=== PATIENT | female | born 1985 | race Hispanic/Latino ===

== ENCOUNTER 2017-09-01 19:59 | Emergency (ER) | payer MEDICAID ==
[2017-09-01 21:08] LABS: APPEARANCE,URINE Clear (CLEAR); BILIRUBIN,URINE Negative (NEGATIVE); COLOR,URINE Yellow (YELLOW); GLUCOSE, URINE (UA) Negative (NEGATIVE); KETONES,URINE Trace mg/dL (NEGATIVE); LEUKOCYTE ESTERASE ,URINE Small (NEGATIVE); NITRATE,URINE Negative (NEGATIVE); OCCULT BLOOD,URINE Small (NEGATIVE); PH,URINE 6.5 (5.0-8.0); PROTEIN,URINE Negative (NEGATIVE)
[2017-09-01 21:13] LABS: BASOPHILS % (AUTO) 0.2 % (0.0-5.0); EOSINOPHILS % (AUTO) 0.9 % (0.0-8.0); LYMPHOCYTES % (AUTO) 12.3 % (21.0-51.0); MEAN CORPUSCULAR HEMOGLOBIN 31.3 pg (27.0-33.0); MEAN CORPUSCULAR HGB CONC 34.6 g/dL (32.0-36.0); MEAN CORPUSCULAR VOLUME 90.4 fL (79-99); MONOCYTES % (AUTO) 4.7 % (3.0-13.0); NEUTROPHILS % (AUTO) 81.9 % (40.0-77.0); PLATELET COUNT (AUTO) 268 K/uL (130-400); RED BLOOD CELL COUNT(AUTO) 4.09 MIL/uL (4.00-5.50); RED CELL DISTRIBUTION WIDTH 13.2 % (11.0-15.5); WHITE BLOOD COUNT (AUTO) 13.7 K/uL (4.8-10.8)
[2017-09-01 21:15] LABS: AMPHET/METH SCREEN,URINE NEGATIVE (NEGATIVE); BARBITURATE SCREEN, URINE NEGATIVE (NEGATIVE); BENZODIAZEPINES SCREEN,URINE NEGATIVE (NEGATIVE); CANNABINOID SCREEN,URINE NEGATIVE (NEGATIVE); COCAINE SCREEN,URINE NEGATIVE (NEGATIVE); OPIATE SCREEN,URINE NEGATIVE (NEGATIVE); PHENCYCLIDINE SCREEN,URINE NEGATIVE (NEGATIVE)
[2017-09-01 21:17] LABS: BACTERIA,URINE Few /HPF (None Seen); MUCUS,URINE Few LPF (None Seen); SQUAMOUS EPITHELIAL CELL,UR Few /HPF (0-2)
[2017-09-01 21:22] LABS: CREATININE 0.6 mg/dL (0.5-1.5); POTASSIUM 3.4 mmol/L (3.5-5.1)
[2017-09-01 21:35] LABS: CREATINE KINASE MB < 0.5 ng/mL (0.5-3.6); CREATINE KINASE, TOTAL 25 U/L (21-232); MYOGLOBIN 13 ng/mL (10-92); TROPONIN I < 0.04 ng/mL (0.00-0.06)
[2017-09-01] MEDS ORDERED: SODIUM CHLORIDE 0.9% 1000ML 1,000 ML IV ONE (21:43)
[2017-09-01] MEDS ORDERED: ASPIRIN 325 MG TABLET ONE (22:42)
== END 2017-09-02 00:54 | disposition home or self-care (01) ==
LOC: EDH 19:59
DX: O26.892 Other specified pregnancy related conditions, second trimester (principal); E86.9 Volume depletion, unspecified; R06.00 Dyspnea, unspecified; R00.2 Palpitations; Z3A.15 15 weeks gestation of pregnancy
CPT/HCPCS: 36415; 76805; 80048; 80305; 81001; 82550; 82553; 83874; 84484 ×2; 85025; 93005 ×2; 96360; 96361; 99291; J7030

== ENCOUNTER 2017-11-09 20:27 | Emergency (ER) | payer MEDICAID | END 2017-11-09 20:52 | disposition home or self-care (01) | LOC: EDH 20:27 | DX: O23.592 Infection of other part of genital tract in pregnancy, second trimester (principal); Z3A.25 25 weeks gestation of pregnancy ==

== ENCOUNTER 2019-03-30 10:00 | Inpatient (IN) | payer MEDICAID ==
[~2019-03-30] VITALS: Ht 154.9 cm; Wt 59.4 kg
[2019-04-03 14:15] LABS: HEMATOCRIT 31.8 % (36-48); MEAN CORPUSCULAR HGB CONC 32.4 g/dL (32.0-36.0); MEAN CORPUSCULAR VOLUME 80.5 fL (79-99); PLATELET COUNT (AUTO) 263 K/uL (130-400); RED BLOOD CELL COUNT(AUTO) 3.95 MIL/uL (4.00-5.50); RED CELL DISTRIBUTION WIDTH 17.8 % (11.0-15.5); WHITE BLOOD COUNT (AUTO) 8.4 K/uL (4.8-10.8)
[2019-04-04] MEDS ORDERED: CEFAZOLIN SODIUM 1 GM VIAL IVP PRN (06:00)
[2019-04-04] MEDS ORDERED: LACTATED RINGERS 1000ML 1,000 ML IV SCH (06:00)
[2019-04-04] MEDS ORDERED: LACTATED RINGERS 1000ML 1,000 ML IV PRN (06:00)
[2019-04-04 06:45] VITALS: BP 111/58
[2019-04-04] MEDS ORDERED: DEXAMETHASONE SOD PHOSPHATE 10MG/ML 1ML VIAL ONE (07:33)
[2019-04-04] MEDS ORDERED: EPHEDRINE SULFATE 50 MG/ML AMPULE ONE (07:34)
[2019-04-04] MEDS ORDERED: OXYTOCIN 10 USP UNITS/ML ONE (07:34)
[2019-04-04] MEDS ORDERED: DURAMORPH PF1 MG/ML 10ML AMP IV ONE (07:34)
[2019-04-04] MEDS ORDERED: ONDANSETRON HCL 4 MG/2 ML VIAL ONE (07:35)
[2019-04-04] MEDS ORDERED: CEFAZOLIN SODIUM 1 GM VIAL IVP ONE (08:10)
[2019-04-04] MEDS ORDERED: PHENYLEPHRINE HCL 10 MG/ML 1ML VIAL IV ONE (08:20)
[2019-04-04] MEDS ORDERED: OXYTOCIN-LR 20 UNITS/1000 ML 1,000 ML IV PRN (09:00)
[2019-04-04] MEDS ORDERED: MEPERIDINE-PF 75 MG/ML SYG IM PRN (09:00)
[2019-04-04] MEDS ORDERED: SODIUM CHLORIDE 0.9% 10 ML VIAL IVP PRN (09:00)
[2019-04-04] MEDS ORDERED: CITRIC ACID/SODIUM CITRATE 30 ML UDCUP ONE (09:05)
[2019-04-04] MEDS ORDERED: CITRIC ACID/SODIUM CITRATE 30 ML UDCUP PO SCH (09:15)
[2019-04-04 09:20] LABS: RAPID PLASMA REAGIN NONREACTIVE (NONREACTIVE)
[2019-04-04] MEDS: ONDANSETRON HCL 4 MG/2 ML VIAL IVP PRN ×2 (12:13→14:18)
[2019-04-04] MEDS ORDERED: NALOXONE HCL 0.4 MG/1 ML ML IVP PRN ×3 (12:15)
[2019-04-04] MEDS ORDERED: DiphenhydrAMINE HCL 50 MG/ML VIAL IVP PRN (12:15)
--- NOTE | 2019-04-04 12:20 | NUR ---
FUNDUS IS FIRM, BLEEDING IS SCANT. NO PAIN REPORTED FROM PATIENT AT THIS TIME. PT ORIENTED TO ROOM. SCDS TO BILATERAL LOWER EXTREMITIES. CALL LIGHT LEFT IN REACH Addendum: 04/04/19 at 1900 by DMITRI HENRY LVN LVN OOZING NOTED TO RIGHT LOWER PART OF DRESSING AND MARKED
[2019-04-04 12:21] VITALS: BP 109/54
[2019-04-04 15:50] VITALS: BP 106/63
--- NOTE | 2019-04-04 15:50 | NUR ---
PATIENT REPORTS NO PAIN AT THIS TIME. FUNDUS IS FIRM, BLEEDING IS SCANT. GRAJEDA CATHETER PATENT AND DRAINING CLEAR YELLOW URINE. CALL LIGHT LEFT IN REACH.
--- NOTE | 2019-04-04 16:30 | NUR ---
ASSISTED PATIENT IN PERICARE. NO OOZING NOTED OUTSIDE OF PREVIOUSLY MARKED AREA.
[2019-04-04] MEDS ORDERED: MEPERIDINE-PF 50 MG/ML SYG ONE ×2 (18:15→23:22)
[2019-04-04] MEDS ORDERED: MEPERIDINE-PF 25 MG/ML SYG ONE ×2 (18:15→23:22)
[2019-04-04] MEDS: PROMETHAZINE HCL 25 MG/ML 1ML AMPULE IM PRN ×2 (18:21→23:28)
[2019-04-04 19:40] VITALS: BP 105/50
[2019-04-04] MEDS: DEXTROSE 5 %-0.45 % NACL 1,000 ML IV PRN (21:00)
[2019-04-04 23:28] VITALS: BP 100/59
[2019-04-05 03:30] VITALS: BP 90/50
[2019-04-05] MEDS: DEXTROSE 5 %-0.45 % NACL 1,000 ML IV PRN (03:49)
[2019-04-05 06:23] LABS: HEMATOCRIT 23.6 % (36-48); MEAN CORPUSCULAR HEMOGLOBIN 25.6 pg (27.0-33.0); MEAN CORPUSCULAR HGB CONC 31.9 g/dL (32.0-36.0); MEAN CORPUSCULAR VOLUME 80.3 fL (79-99); PLATELET COUNT (AUTO) 209 K/uL (130-400); RED BLOOD CELL COUNT(AUTO) 2.93 MIL/uL (4.00-5.50); RED CELL DISTRIBUTION WIDTH 17.8 % (11.0-15.5); WHITE BLOOD COUNT (AUTO) 11.9 K/uL (4.8-10.8)
--- NOTE | 2019-04-05 06:35 | NUR ---
Arnett catheter removed, tip intact, pericare done, scant lochia, fundus is firm. abdominal dressing removed, applied telfa dressing. applied abdominal binder. informed to call for assistance to the bathroom, pt voiced understanding. Addendum: 04/05/19 at 0701 by NIVIA SILVESTRE RN Amended: Links added.
[2019-04-05 07:40] VITALS: BP 97/52
--- NOTE | 2019-04-05 07:50 | NUR ---
FUNDUS FIRM. BLEEDING SCANT. BABY RESTING ON PATIENT'S CHEST. STERISTRIPS APPLIED TO INCISION. ABDOMINAL BINDER IN PLACE. EDUCATED PT ON IMPORTANCE OF AMBULATING AND USING I.S. INSTRUCTION GIVEN ON INCISION CARE. PT. VOICED UNDERSTANDING. CALL LIGHT LEFT IN REACH
[2019-04-05] MEDS ORDERED: BISACODYL 10 MG SUPP.RECT RC PRN (09:00)
[2019-04-05] MEDS ORDERED: LANOLIN 30GM OINTMENT TP PRN (09:00)
[2019-04-05] MEDS ORDERED: ACETAMINOPHEN EXTRA STRENGTH 500 MG TABLET PO PRN (09:00)
[2019-04-05] MEDS ORDERED: IBUPROFEN 600 MG TABLET PO PRN (09:00)
[2019-04-05] MEDS ORDERED: HYDROCODONE/ACETAMINOPHEN 5/325 MG TAB PO PRN (09:00)
[2019-04-05] MEDS: DOCUSATE SODIUM 100 MG CAP PO SCH ×2 (09:27→20:54)
[2019-04-05] MEDS: SIMETHICONE 80 MG TAB.CHEW PO PRN ×2 (09:27→20:54)
[2019-04-05] MEDS: IBUPROFEN 800 MG TAB PO SCH ×2 (09:29→16:45)
[2019-04-05 12:45] VITALS: BP 92/56
[2019-04-05] MEDS: ACETAMINOPHEN-CODEINE 300/30MG TAB PO PRN (12:53)
--- NOTE | 2019-04-05 12:53 | NUR ---
PT C/O HEADACHE. PT LAID FLAT, PAIN TO HEAD CONTINUED. COFFEE GIVEN, WILL ADMINISTER PAIN MEDICATION.
--- NOTE | 2019-04-05 13:50 | NUR ---
PT STATES PAIN IS NOW A 2/10. PT STATES SHE HAS NOT SLEPT WELL. ADVISED PT TO TRY TO REST. INFORMED QUIET TIME IS FROM 2-4 TO PROVIDE FOR UNINTERRUPTED TIME TO REST AND [place] WITH BABY. PT INSTRUCTED TO CALL WITH ANY NEEDS OR CONCERNS. PT VOICED UNDERSTANDING.
[2019-04-05 16:03] VITALS: BP 90/50
--- NOTE | 2019-04-05 16:03 | NUR ---
PT C/O DULL HEADACHE. STATES SHE HAS NOT BEEN ABLE TO REST. 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
[2019-04-05 19:30] VITALS: BP 113/53
--- NOTE | 2019-04-05 20:25 | NUR ---
PT. AMBULATED IN HALLWAY FOR 22 MINUTES, WELL TOLERATED. DENIED PAIN AND DISCOMFORT.
--- NOTE | 2019-04-05 21:05 | NUR ---
PT. UP AND SHOWERED. WELL TOLERATED.
[2019-04-06 00:09] VITALS: BP 102/57
[2019-04-06 00:15] VITALS: BP 113/63
[2019-04-06] MEDS: IBUPROFEN 800 MG TAB PO SCH ×2 (01:08→09:20)
[2019-04-06 03:37] VITALS: BP 108/53
[2019-04-06 07:55] VITALS: BP 100/63
[2019-04-06] MEDS: DOCUSATE SODIUM 100 MG CAP PO SCH (09:19)
[2019-04-06] MEDS: SIMETHICONE 80 MG TAB.CHEW PO PRN (09:20)
[2019-04-06] MEDS: ACETAMINOPHEN-CODEINE 300/30MG TAB PO PRN (11:12)
--- NOTE | 2019-04-06 12:35 | NUR ---
DISCHARGE PT LEFT UNIT VIA WHEELCHAIR, WITH BABY IN ARMS, ACCOMPANIED BY SIGNIFICANT OTHER. DENIED PAIN AND HAD NO COMPLAINTS. BABY STRAPPED IN CAR SEAT. PT AND BABY TRANSPORTED BY PERSONAL VEHICLE.
[2019-04-07 04:10] LABS: HEPATITIS Bs ANTIGEN SCREEN P Negative (Negative)
== END 2019-04-06 12:35 | disposition home or self-care (01) | DRG 540 ==
LOC: LDH 04-04 05:51 → WSH 04-04 11:05
PROVIDERS: ADMIT Specialist; ATTEND Specialist
PROC: 10D00Z1 Extraction of Products of Conception, Low, Open Approach (ICD-10-PCS; principal; 2019-04-04 08:00)
DX: O34.211 Maternal care for low transverse scar from previous cesarean delivery (principal); O24.420 Gestational diabetes mellitus in childbirth, diet controlled; Z37.0 Single live birth; Z3A.39 39 weeks gestation of pregnancy
CPT/HCPCS: 36415; 59510; 82947; 85027; 86592; 86701; 86850; 86900; 86901; 87340; 87390; A4344; G0378; J0690; J1100; J2175; J2274; J2370; J2405; J2550; J2590; J3490; J7120